=== PATIENT | female | born 1985 ===

== ENCOUNTER 2017-12-05 14:22 | Inpatient (IN) | payer OTHER ==
[~2017-12-05] VITALS: Ht 160 cm; Wt 127.9 kg
[~2017-12-05 14:22] MED LIST: YASMIN 28 TABLE1 TAB PO
[2017-12-09] MEDS ORDERED: FERROUS SULFAT325 M1 PO (17:17)
[2017-12-09] MEDS ORDERED: FAMOTIDINE20 MG/2 M1 PO (17:22)
[2017-12-09] MEDS ORDERED: LOW-OGESTREL-21 EACH PO (17:22)
== END 2017-12-09 19:06 | DRG 761 ==
LOC: ER 14:22 → OB/GYN 12-06 11:37
DX: N93.8 Other specified abnormal uterine and vaginal bleeding (principal); D50.0 Iron deficiency anemia secondary to blood loss (chronic)

== ENCOUNTER 2018-04-05 16:39 | Emergency (ER) | payer OTHER ==
[~2018-04-05] VITALS: Ht 160 cm; Wt 128.4 kg
[~2018-04-05 16:39] MED LIST changes: +FAMOTIDINE20 MG/2 M1 PO; +FERROUS SULFAT325 M1 PO; +LOW-OGESTREL-21 EACH PO
== END 2018-04-06 00:20 | disposition home or self-care (01) ==
LOC: ER 16:39
DX: J45.998 Other asthma (principal); J40 Bronchitis, not specified as acute or chronic

== ENCOUNTER → 2018-10-24 | Emergency (ER) | payer OTHER ==
[~2018-10-24] VITALS: Ht 160 cm; Wt 133.8 kg
[~2018-10-24] MED LIST changes: +FLONASE ALLERG9.9 ML NASAL; +IRON1TAB4 PO; +LO LOESTRIN FE1 EACH PO
== END | disposition home or self-care (01) ==
LOC: ER 22:26
DX: N93.8 Other specified abnormal uterine and vaginal bleeding (principal)

== ENCOUNTER 2020-11-27 21:45 | Emergency (ER) | payer OTHER ==
[~2020-11-27] VITALS: Ht 160 cm; Wt 122.5 kg
== END 2020-11-28 05:11 | disposition home or self-care (01) ==
LOC: ER 21:45
DX: N93.8 Other specified abnormal uterine and vaginal bleeding (principal); Z20.828 Contact with and (suspected) exposure to other viral communicable diseases